=== PATIENT | female | born 1950 | race Hispanic/Latino ===

== ENCOUNTER → 2020-02-10 | Outpatient (CLI) | payer OTHER, MEDICARE | END | disposition home or self-care (01) | LOC: RAH 09:33 | PROVIDERS: ATTEND Family Medicine | DX: N28.1 Cyst of kidney, acquired (principal); I70.0 Atherosclerosis of aorta | CPT/HCPCS: 76700 ==

== ENCOUNTER → 2020-04-30 | Outpatient (CLI) | payer OTHER, MEDICARE | END | disposition home or self-care (01) | LOC: RAH 13:22 | PROVIDERS: ATTEND Family Medicine | DX: M79.89 Other specified soft tissue disorders (principal) | CPT/HCPCS: 73562 ==

== ENCOUNTER → 2021-02-07 | Outpatient (CLI) | payer OTHER, MEDICARE | END | disposition home or self-care (01) | LOC: OIH 08:39 | PROVIDERS: ATTEND Family Medicine | DX: M19.012 Primary osteoarthritis, left shoulder (principal); M85.822 Other specified disorders of bone density and structure, left upper arm | CPT/HCPCS: 73030 ==

== ENCOUNTER 2022-03-03 06:37 | Emergency (ER) | payer OTHER, MEDICARE ==
[~2022-03-03] VITALS: Ht 152.4 cm; Wt 60.8 kg
[2022-03-03 06:57] LABS: HEMATOCRIT 38.2 % (36-48); RED BLOOD CELL COUNT(AUTO) 4.33 MIL/uL (4.00-5.50); WHITE BLOOD COUNT (AUTO) 6.5 K/uL (4.8-10.8)
[2022-03-03 06:58] LABS: BASOPHILS % (AUTO) 0.5 % (0.0-5.0); EOSINOPHILS % (AUTO) 1.6 % (0.0-8.0); LYMPHOCYTES % (AUTO) 33.8 % (21.0-51.0); MEAN CORPUSCULAR HEMOGLOBIN 29.1 pg (27.0-33.0); MEAN CORPUSCULAR VOLUME 88.2 fL (79-99); MONOCYTES % (AUTO) 6.2 % (3.0-13.0); NEUTROPHILS % (AUTO) 57.7 % (40.0-77.0); PLATELET COUNT (AUTO) 393 K/uL (130-400); RED CELL DISTRIBUTION WIDTH 12.8 % (11.0-15.5)
[2022-03-03] MEDS ORDERED: NITROGLYCERIN 0.4 MG SL TAB SL PRN (07:00)
[2022-03-03] MEDS ORDERED: ASPIRIN 325MG TAB PO ONE (07:00)
[2022-03-03 07:12] LABS: ALBUMIN 4.3 g/dL (3.5-5.0); POTASSIUM 3.9 mmol/L (3.5-5.1); TOTAL PROTEIN, SERUM 8.8 g/dL (6.0-8.3)
[2022-03-03 07:25] LABS: CREATININE 0.9 mg/dL (0.5-1.5)
[2022-03-03 10:04] VITALS: BP 156/76
== END 2022-03-03 10:44 | disposition home or self-care (01) ==
LOC: EDH 06:37
DX: R07.89 Other chest pain (principal); E78.00 Pure hypercholesterolemia, unspecified; M19.90 Unspecified osteoarthritis, unspecified site; I11.9 Hypertensive heart disease without heart failure; Z88.5 Allergy status to narcotic agent; Z88.6 Allergy status to analgesic agent
CPT/HCPCS: 36415; 71045; 80053; 83880; 84484; 85025; 93005

== ENCOUNTER 2022-07-12 14:07 | Emergency (ER) | payer OTHER, MEDICARE ==
[~2022-07-12] VITALS: Ht 170.2 cm; Wt 57.6 kg
[2022-07-12 14:34] LABS: BASOPHILS % (AUTO) 0.6 % (0.0-5.0); EOSINOPHILS % (AUTO) 0.7 % (0.0-8.0); HEMATOCRIT 32.8 % (36-48); LYMPHOCYTES % (AUTO) 27.7 % (21.0-51.0); MEAN CORPUSCULAR HEMOGLOBIN 29.3 pg (27.0-33.0); MEAN CORPUSCULAR HGB CONC 33.5 g/dL (32.0-36.0); MEAN CORPUSCULAR VOLUME 87.5 fL (79-99); MONOCYTES % (AUTO) 8.3 % (3.0-13.0); NEUTROPHILS % (AUTO) 62.4 % (40.0-77.0); PLATELET COUNT (AUTO) 393 K/uL (130-400); RED BLOOD CELL COUNT(AUTO) 3.75 MIL/uL (4.00-5.50); RED CELL DISTRIBUTION WIDTH 13.7 % (11.0-15.5); WHITE BLOOD COUNT (AUTO) 6.9 K/uL (4.8-10.8)
[2022-07-12 14:51] LABS: ALBUMIN 3.7 g/dL (3.5-5.0); MAGNESIUM 1.9 mg/dL (1.80-2.40); POTASSIUM 3.9 mmol/L (3.5-5.1); TOTAL PROTEIN, SERUM 7.7 g/dL (6.0-8.3)
[2022-07-12] MEDS ORDERED: MECLIZINE HCL 12.5 MG TABLET PO ONE (15:30)
[2022-07-12] MEDS ORDERED: ACETAMINOPHEN 500 MG TABLET PO ONE (15:30)
[2022-07-12] MEDS ORDERED: ACETAMINOPHEN 500 MG TABLET ONE (15:59)
[2022-07-12] MEDS: MECLIZINE HCL 25 MG TABLET ONE ×2 (16:03→16:18)
[2022-07-12 16:50] LABS: APPEARANCE,URINE CLEAR (CLEAR); BILIRUBIN,URINE NEGATIVE (NEGATIVE); COLOR,URINE LIGHT-YELLOW (YELLOW); GLUCOSE, URINE (UA) NEGATIVE (NEGATIVE); KETONES,URINE NEGATIVE (NEGATIVE); LEUKOCYTE ESTERASE ,URINE 75 Leu/uL (NEGATIVE); NITRATE,URINE NEGATIVE (NEGATIVE); PH,URINE 6.5 (5.0-8.0); PROTEIN,URINE NEGATIVE (NEGATIVE); UROBILINOGEN,URINE 0.2 mg/dL (0.2-1.0)
[2022-07-12 17:19] LABS: BACTERIA,URINE RARE /HPF (None Seen); MUCUS,URINE RARE LPF (None Seen); SQUAMOUS EPITHELIAL CELL,UR FEW /HPF (0-2)
[2022-07-12] MEDS ORDERED: DICL100T85 PO (17:51)
[2022-07-12] MEDS ORDERED: MECL-226 PO (17:51)
[2022-07-12 18:36] VITALS: BP 153/69
== END 2022-07-12 18:38 | disposition home or self-care (01) ==
LOC: EDH 14:07
DX: R51.9 Headache, unspecified (principal); M54.2 Cervicalgia; R42 Dizziness and giddiness; I10 Essential (primary) hypertension; M19.90 Unspecified osteoarthritis, unspecified site; E78.00 Pure hypercholesterolemia, unspecified; Z90.710 Acquired absence of both cervix and uterus; Z98.890 Other specified postprocedural states; Z88.5 Allergy status to narcotic agent; Z88.6 Allergy status to analgesic agent; Z88.8 Allergy status to other drugs, medicaments and biological substances
CPT/HCPCS: 36415; 71045; 80053; 81001; 83735; 84484; 85025; 87088; 93005

== ENCOUNTER → 2022-12-03 | Outpatient (CLI) | payer OTHER, MEDICARE ==
[~2022-12-03] MED LIST: AMOX1TAB16 PO; BACL10TA PO; CLON0.1T PO; CYAN-35 PO; ERGO400C PO; FOLI1 PO; HYDR12.54 PO; LETR2.5T7 PO; MELO-108 PO; OMEP20CA12 PO; PANT40TA PO; SIMV-43 PO; TRAZ-185 PO; VALS160T29 PO; VITA-395 PO
== END | disposition home or self-care (01) ==
LOC: RAH 13:49
PROVIDERS: ATTEND Family Medicine
DX: I10 Essential (primary) hypertension (principal); R06.02 Shortness of breath
CPT/HCPCS: 93306

== ENCOUNTER 2023-03-18 22:24 | Emergency (ER) | payer OTHER, MEDICARE ==
[~2023-03-18] VITALS: Ht 152.4 cm; Wt 54.4 kg
[2023-03-18 22:28] VITALS: BP 156/74; PULSE 88; RESP 18
[2023-03-18] MEDS ORDERED: ACETAMINOPHEN 500 MG TABLET PO ONE (23:30)
[2023-03-18 23:35] LABS: APPEARANCE,URINE CLEAR (CLEAR); BILIRUBIN,URINE NEGATIVE (NEGATIVE); COLOR,URINE COLORLESS (YELLOW); GLUCOSE, URINE (UA) NEGATIVE (NEGATIVE); KETONES,URINE NEGATIVE (NEGATIVE); LEUKOCYTE ESTERASE ,URINE NEGATIVE Leu/uL (NEGATIVE); NITRATE,URINE 1+ (NEGATIVE); OCCULT BLOOD,URINE NEGATIVE (NEGATIVE); PH,URINE 7.5 (5.0-8.0); PROTEIN,URINE NEGATIVE (NEGATIVE); UROBILINOGEN,URINE 0.2 mg/dL (0.2-1.0)
[2023-03-18 23:36] LABS: ADD UA MICROSCOPIC YES
[2023-03-18 23:38] LABS: BACTERIA,URINE RARE /HPF (None Seen)
[2023-03-18] MEDS ORDERED: TRAM50TA4 PO (23:56)
== END 2023-03-19 00:15 | disposition home or self-care (01) ==
LOC: EDH 22:24
DX: S82.002A Unspecified fracture of left patella, initial encounter for closed fracture (principal); I10 Essential (primary) hypertension; Z79.899 Other long term (current) drug therapy; Z90.49 Acquired absence of other specified parts of digestive tract; W01.10XA Fall on same level from slipping, tripping and stumbling with subsequent striking against unspecified object, initial encounter; Y93.89 Activity, other specified; Y92.89 Other specified places as the place of occurrence of the external cause; Y99.8 Other external cause status
CPT/HCPCS: 29505; 73562; 73700; 81001; 87077; 87088; 87186

== ENCOUNTER → 2024-06-29 | Outpatient (CLI) | payer OTHER, MEDICARE ==
[~2024-06-29] MED LIST changes: +TRAM50TA4 PO
--- NOTE | 2024-06-29 12:41 | HMCIMG ---
ABD 1VW HISTORY: Constipation COMPARISON: None FINDINGS: A frontal projection of the abdomen was obtained. A nonspecific bowel gas pattern is seen. Fecal material is seen in the colon. Degenerative changes of the thoracolumbar spine are noted. IMPRESSION: 1. A nonspecific bowel gas pattern is seen.
== END | disposition home or self-care (01) ==
LOC: RAH 11:30
PROVIDERS: ATTEND Internal Medicine
DX: K59.00 Constipation, unspecified (principal); M47.815 Spondylosis without myelopathy or radiculopathy, thoracolumbar region
CPT/HCPCS: 74018

== ENCOUNTER 2024-11-20 00:40 | Emergency (ER) | payer OTHER, MEDICAID ==
[~2024-11-20] VITALS: Ht 152.4 cm; Wt 59.0 kg
--- NOTE | 2024-11-20 01:23 | ERN ---
ED Note History of Present Illness Stated Complaint: ELEVATED BP, HEADACHE, LIGHT HEADED ONSET 1100 Chief Complaint: Headache Time Seen by MD: 00:49 Dictation: This is a 74-year-old female who presented to the emergency room with complaints of occipital headache and lightheadedness and feels that her blood pressure is high. She stated that yesterday she felt dehydrated and drank an electrolyte powder packet mixed with water and her report is that her blood pressure maybe high be due to sodium load. No history of any fall, no visual disturbance, no neurological changes. No nausea vomitings no fever chills or rigors. Apparently she was noted to be hyperventilating in the triage area but settled down Temperature 98 pulse 90 respirations 26 blood pressure 147/76 with a pulse oximetry of 100% on room air Her chronic medical problems include hypertension, hyperlipidemia and history of breast cancer Allergies: Coded Allergies: aspirin (Unverified Allergy, Unknown, 03/03/22) caffeine (Unverified Allergy, Unknown, 07/12/22) codeine (Unverified Allergy, Unknown, 03/03/22) Home Meds Active Scripts Tramadol Hcl (Tramadol HCl) 50 Mg Tablet, 50 MG PO QIDP PRN for PAIN, #14 TAB Prov:URIEL URIAS MD 03/18/23 Amoxicillin/Potassium Clav (Amox Tr-K Clv 875-125 mg Tab) 1 Each Tablet, 1 EACH PO BID, #8 TAB Prov:[facility] 10/31/22 Pantoprazole Sodium (Protonix) 40 Mg Tablet.dr, 40 MG PO BIDAC, #30 TAB Prov:[facility] 10/31/22 Reported Medications Cholecalciferol (Vitamin D3) (Vitamin D3) 10 Mcg Capsule, 10 MCG PO DAILY, CAP 10/26/22 Cyanocobalamin (Vitamin B-12) (Vitamin B-12) 1,000 Mcg Capsule, 1000 MCG PO DAILY, CAP 10/26/22 Vitamin E (Dl,Tocopheryl Acet) (Vitamin E) 180 Mg Capsule, 180 MG PO DAILY, CAP 10/26/22 Meloxicam (Meloxicam) 15 Mg Tablet, 15 MG PO PCLUNCH, TAB 10/26/22 Valsartan (Valsartan) 160 Mg Tablet, 160 MG PO DAILY, TAB 10/26/22 Simvastatin (Simvastatin) 20 Mg Tablet, 20 MG PO HS, TAB 10/26/22 Hydrochlorothiazide (Hydrochlorothiazide) 12.5 Mg Tablet, 12.5 MG PO DAILY, TAB 10/26/22 Folic Acid (Folvite) 1 Mg Tab, 1 MG PO DAILY, TAB 10/26/22 Clonidine HCl (Clonidine HCl) 0.1 Mg Tablet, 0.1 MG PO DAILY PRN for IF SBP GREATER THAN 170, TAB 10/26/22 Baclofen (Baclofen) 10 Mg Tablet, 10 MG PO HS, TAB 10/26/22 Letrozole (Letrozole) 2.5 Mg Tablet, 2.5 MG PO DAILY, TAB 10/26/22 Omeprazole (Omeprazole) 20 Mg Capsule.dr, 20 MG PO DAILY, CAP 10/26/22 Trazodone HCl (Trazodone HCl) 50 Mg Tablet, 50 MG PO BID, TAB 10/26/22 Past Medical History Past Medical History: Anxiety, High Cholesterol, Hypertension Surgical History: Hysterectomy, Surgical History Other: L BREAST BIOPSY/LUMPECTOMY Family History: HTN Social History: Negative, Lives with family History: Not Applicable RN Note Reviewed/Agreed w/PFSH: Yes Review of System Dictation Constitutional: Negative for fever,chills, and weight loss Eyes: Negative for injury, pain,redness, and discharge ENT: Negative for injury,pain or swelling Cardiovascular: Negative for chest pain, palpitations, and edema Respiratory: Negative for shortness of breath, cough, and wheezing, Abdomen/GI: Negative for abdominal pain, nausea, vomiting, diarrhea, and constipation Back: Negative for injury and pain : Negative for injury, bleeding and discharge MS/Extremity: Negative for injury and deformity Skin: Negative for rash, and discoloration Neuro: Negative for headache, weakness, numbness, tingling, and seizure Psych: Negative for suicide ideation, homicidal ideation, and hallucinations positive for severe anxiety Initial Vital Sign VS Vital Signs Date Time Temp Pulse Resp B/P (MAP) Pulse Ox O2 Delivery O2 Flow Rate FiO2 11/20/24 00:44 98.1 90 26 147/76 100 Room Air 0 11/20/24 01:04 21 Physical Exam Dictation General: awake, alert, NAD generally anxious but very pleasant lady Head/Face: Normocephalic, atraumatic Eyes: PERRL, EOMI, vision at baseline ENT: oral cavity clear, TMs clear, no signs of infection mucous membranes were dry Neck: Trachea midline, supple, no nuchal rigidity Cardiovascular: RRR, normal S1/S2, No MRGs, no JVD Respiratory: CTAB, no respiratory distress, No rales or wheezes Abdomen: Soft, non-tender, non-distended, normal bowel sounds, no guarding or rebound. Skin: Warm, dry, normal turgor, no rash MS/Extremity: Pulses equal, no cyanosis, neurovascular intact, FROM Neuro: COAx4, GCS 15, strength 5/5, CN 2-12 intact, normal cerebellar exam, normal gait, Psych: Normal behavior, mood, and affect normal Extremities-trace edema without any palpable cords, Homans sign is negative Results (Laboratory/Radiology) Laboratory/Radiology Laboratory Tests Test 11/20/24 01:19 11/20/24 01:38 11/20/24 06:34 Urine Color COLORLESS (YELLOW) Urine Appearance CLEAR (CLEAR) Urine pH 7.5 (5.0-8.0) Urine Specific [place] 1.002 (1.001-1.031) Urine Protein NEGATIVE mg/dL (NEGATIVE) Urine Glucose (UA) NEGATIVE mg/dL (NEGATIVE) Urine Ketones NEGATIVE mg/dL (NEGATIVE) Urine Occult Blood NEGATIVE (NEGATIVE) Urine Nitrate NEGATIVE (NEGATIVE) Urine Bilirubin NEGATIVE mg/dL (NEGATIVE) Urine Urobilinogen 0.2 mg/dL (0.2-1.0) Urine Leukocyte Esterase NEGATIVE Justino/uL White Blood Count 9.8 K/uL (4.8-10.8) Red Blood Count 4.29 MIL/uL (4.00-5.50) Hemoglobin 13.7 g/dL (12.0-16.0) Hematocrit 37.4 % (36-48) Mean Corpuscular Volume 87.2 fL (79-99) Mean Corpuscular Hemoglobin 31.9 pg (27.0-33.0) Mean Corpuscular Hemoglobin Concent 36.6 g/dL (32.0-36.0) H Red Cell Distribution Width 12.6 % (11.0-15.5) Platelet Count 359 K/uL (130-400) Mean Platelet Volume 8.9 fL (7.5-10.5) Immature Granulocyte % (Auto) 0.4 % (0-1) Neutrophils (%) (Auto) 64.9 % (40.0-77.0) Lymphocytes (%) (Auto) 28.0 % (21.0-51.0) Monocytes (%) (Auto) 6.5 % (3.0-13.0) Eosinophils (%) (Auto) 0.1 % (0.0-8.0) Basophils (%) (Auto) 0.1 % (0.0-5.0) Neutrophils # (Auto) 6.3 K/uL (1.8-7.7) Lymphocytes # (Auto) 2.7 K/uL (1.0-4.8) Monocytes # (Auto) 0.6 K/uL (0.1-1.0) Eosinophils # (Auto) 0.01 K/uL (0.00-0.70) Basophils # (Auto) 0.01 K/uL (0.00-0.20) Absolute Immature Granulocyte (auto 0.04 K/uL (0-1) Nucleated Red Blood Cells 0.0 % (0.0-0.19) Red Blood Cell Morphology See comments Sodium Level 126 mmol/L (136-145) L 128 mmol/L (136-145) L Potassium Level 2.8 mmol/L (3.5-5.1) *L 3.6 mmol/L (3.5-5.1) Chloride Level 86 mmol/L (101-111) *L 91 mmol/L (101-111) L Carbon Dioxide Level 28 mmol/L (21-32) 32 mmol/L (21-32) Blood Urea Nitrogen 10 mg/dL (7-18) 8 mg/dL (7-18) Creatinine 0.7 mg/dL (0.5-1.0) 0.7 mg/dL (0.5-1.0) Glomerular Filtration Rate Calc 91 mL/min (>90) 91 mL/min (>90) Random Glucose 108 mg/dL (70-105) H 92 mg/dL (70-105) Total Calcium 9.3 mg/dL (8.5-10.1) 8.0 mg/dL (8.5-10.1) L Magnesium Level 1.50 mg/dL (1.80-2.40) L 1.60 mg/dL (1.80-2.40) L Total Creatine Kinase 73 U/L (21-232) Troponin I High Sensitivity 11.9 ng/L (4-50) Labs Reviewed?: Yes ED Course ED Course Orders Procedure Category Date Status Time Ketorolac PHA 11/20/24 Complete Tromethamine 30mg/Ml 01:30 Cbc With Differential LAB 11/20/24 Complete 01:21 Basic Metabolic Panel LAB 11/20/24 Complete 01:21 Cardiac Panel LAB 11/20/24 Complete 01:21 Magnesium LAB 11/20/24 Complete 01:21 Urinalysis Profile LAB 11/20/24 Complete 01:21 12 Lead Ekg Tracing- EKG 11/20/24 Resulted Technical 01:21 Acetaminophen 325 Tab PHA 11/20/24 Complete (Tylenol 325mg Tab 02:00 Alprazolam 0.5mg PHA 11/20/24 Complete (Xanax 0.5mg) 02:00 0.9% Nacl 500ml PHA 11/20/24 Complete Iv.Soln (Ns 500ml 02:30 Potassium Bicarb/Cit PHA 11/20/24 Complete Ac 25meq (K-Lyte Ta 02:30 Potassium Bicarb/Cit PHA 11/20/24 Complete Ac 25meq (K-Lyte Ta 02:16 Alprazolam 0.5mg PHA 11/20/24 Complete (Xanax 0.5mg) 03:00 Basic Metabolic Panel LAB 11/20/24 Complete 04:32 Magnesium 2gm Premix PHA 11/20/24 Complete 50ml (Magnesium 2gm 06:00 Magnesium LAB 11/20/24 Complete 04:32 Current Medications Medications (Trade) Dose Ordered Sig/Martha Route PRN Reason Start Time Stop Time Status Last Admin Dose Admin Acetaminophen (TYLenol 325MG TAB) 650 mg ONCE ONCE PO 11/20/24 02:00 11/20/24 02:01 DC 11/20/24 01:47 Alprazolam (XANax 0.5MG) 0.5 mg ONCE ONCE PO 11/20/24 02:00 11/20/24 02:01 DC 11/20/24 01:46 Alprazolam (XANax 0.5MG) 0.5 mg ONCE ONCE PO 11/20/24 03:00 11/20/24 03:01 DC 11/20/24 03:04 Ketorolac Tromethamine (toRADol) 30 mg ONCE ONCE IVP 11/20/24 01:30 11/20/24 01:25 DC Magnesium Sulfate 50 ml @ 0 mls/hr PROTOCOL IV 11/20/24 06:00 11/20/24 07:44 DC Potassium Bicarbonate (K-Lyte Tablet Eff 25 Meq Tablet.eff) 25 meq STK-MED ONCE .ROUTE 11/20/24 02:16 11/20/24 02:20 DC Potassium Bicarbonate (K-Lyte Tablet Eff 25 Meq Tablet.eff) 50 meq ONCE ONCE PO 11/20/24 02:30 11/20/24 02:31 DC 11/20/24 02:19 Sodium Chloride 500 ml @ 0 mls/hr Q0M IV 11/20/24 02:30 11/20/24 07:44 DC 11/20/24 02:18 Vital Signs Date Time Temp Pulse Resp B/P (MAP) Pulse Ox O2 Delivery O2 Flow Rate FiO2 11/20/24 07:43 97.9 65 15 126/63 100 Room Air* 0 11/20/24 06:27 62 15 120/61 97 Room Air* 0 11/20/24 04:42 97.5 67 14 139/74 99 Room Air* 0 11/20/24 02:57 97.5 78 22 131/70 99 Room Air* 0 11/20/24 01:04 97.5 91 22 163/75 99 Room Air* 0 11/20/24 00:44 98.1 90 26 147/76 100 Room Air 0 We will perform diagnostic labs, advanced imaging and administer medications according to the patient's complaint. Once the results are available, will review and personally interpreted the labs to rule out any acute life- threatening emergency the trach require immediate intervention and treatment. I will then re-evaluate the patient after treatment and diagnostic exams have return to determine whether the patient requires any further testing, can safely be discharged home or need further admission to hospital for additional treatment and evaluation. Reviewed labs which showed severe hypokalemia, severe hyponatremia and hypochloremia.-fluid boluses as well as aggressive repletion of potassium and magnesium done. Repeat BNP 7 was requested her dizziness and headache have significantly improved and resolved 7:23 a.m. electrolytes improved significantly from prior we will discharge her to home to follow up with her primary care physician Medical Decision Making MDM Differential diagnosis: Neuropathies sensory or motor, electrolyte abnormalities, anxiety/panic attack, collagen vascular disease Rationale: Tests considered and ordered secondary to shared decision making include: Previous outside records reviewed: Old ER visits. Risk of complication and/or morbidity or mortality of patient management: None Medications-Per medication reconciliation Need for hospitalization: Patient does not meet criteria for hospitalization. Need for emergency major/minor surgery: No There are no social concerns with this patient. Prescription drug management Prescriptions will include symptomatic care Patient's prior external medical records from other ER visits were reviewed by me as indicated. Prior testing and results from previous visits were reviewed. Prior tests were taken into account with medical decision making and resource utilization, independent historian/historians were used to obtain complete medical history. I independently interpreted the test that were performed, results were reviewed by me and considered findings on radiology if ordered. Medical management and examination interpretation discussions were had by me with other qualified healthcare professionals as indicated for the patient's care. Problem List Problem List: (1) Hypokalemia (2) Hyponatremia (3) Severe dehydration (4) High blood pressure (5) Dizziness (6) Headache (7) Hypomagnesemia DX & DISP Disposition: Discharge Departure Impression: Primary Impression: Hypokalemia Additional Impressions: Hyponatremia, Severe dehydration, High blood pressure, Hypomagnesemia, Headache, Dizziness Condition: Stable Additional Instructions: Patient and the caregiver have been informed of all the diagnostic tests and the imaging conducted during the today's visit to the emergency room and has verbalized understanding of the results I have personally reviewed and interpreted all diagnostic exams performed here in the ER today as well as the vital signs documented by the nursing staff. The patient is now being discharged to home and should follow up with the primary care physician or the specialist as directed by the ER staff. Follow-up with primary care provider in 1 to 2 days. Take medications as directed here in the emergency room. Okay to continue home medications unless otherwise discussed during your visit in the emergency room today. Return to your nearest emergency room if symptoms worsen or if there is no improvement. Call 911 if you need immediate assistance. Take Tylenol or Motrin over-the- counter as needed and if no contraindications are present. Increase oral hydration. A wound culture or urine culture was ordered here in the emergency room department please follow-up with primary care provider and advise them to get repeat ports from our facility. If you had any Jason wrap/splints that were applied here, please do not remove them until you see your primary care or specialty. Referrals: EBONY FARFAN MD (PCP) JUDITH EPPERSON MD Nov 20, 2024 01:23
[2024-11-20 01:29] LABS: APPEARANCE,URINE CLEAR (CLEAR); GLUCOSE, URINE (UA) NEGATIVE (NEGATIVE); LEUKOCYTE ESTERASE ,URINE NEGATIVE Leu/uL (NEGATIVE); NITRATE,URINE NEGATIVE (NEGATIVE); OCCULT BLOOD,URINE NEGATIVE (NEGATIVE)
[2024-11-20 01:32] LABS: ADD UA MICROSCOPIC NO
--- NOTE | 2024-11-20 01:33 | EKG ---
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
[2024-11-20 01:52] LABS: IMMATURE GRANULOCYTE ABSOLUTE 0.04 K/uL (0-1); NUCLEATED RED BLOOD CELLS 0.0 % (0.0-0.19); PLATELET COUNT (AUTO) 359 K/uL (130-400); RED BLOOD CELL COUNT(AUTO) 4.29 MIL/uL (4.00-5.50); RED CELL DISTRIBUTION WIDTH 12.6 % (11.0-15.5); WHITE BLOOD COUNT (AUTO) 9.8 K/uL (4.8-10.8)
[2024-11-20 02:01] LABS: CREATININE 0.7 mg/dL (0.5-1.0); GLOMERULAR FILTR. RATE CALC 91.0 mL/min (>90); GLUCOSE,RANDOM 108.0 mg/dL (70-105); SODIUM SERUM 126.0 mmol/L (136-145); UREA NITROGEN, BLOOD 10.0 mg/dL (7-18)
[2024-11-20 02:10] LABS: CREATINE KINASE, TOTAL 73.0 U/L (21-232)
[2024-11-20] MEDS: 0.9% NACL 500ML IV.SOLN 500 ML IV SCH (02:18)
[2024-11-20] MEDS ORDERED: MAGNESIUM 2GM PREMIX 50ML 50 ML IV SCH (06:00)
[2024-11-20 06:53] LABS: CREATININE 0.7 mg/dL (0.5-1.0); GLOMERULAR FILTR. RATE CALC 91.0 mL/min (>90); GLUCOSE,RANDOM 92.0 mg/dL (70-105); SODIUM SERUM 128.0 mmol/L (136-145); UREA NITROGEN, BLOOD 8.0 mg/dL (7-18)
[2024-11-20 07:43] VITALS: BP 126/63; PULSE 65; RESP 15; TEMP 97.9; O2SAT 100
== END 2024-11-20 07:44 | disposition home or self-care (01) ==
LOC: EDH 00:40
DX: E87.6 Hypokalemia (principal); E87.1 Hypo-osmolality and hyponatremia; E86.0 Dehydration; R03.0 Elevated blood-pressure reading, without diagnosis of hypertension; E83.42 Hypomagnesemia; R51.9 Headache, unspecified; R42 Dizziness and giddiness; E78.00 Pure hypercholesterolemia, unspecified; F41.9 Anxiety disorder, unspecified; I10 Essential (primary) hypertension; Z79.811 Long term (current) use of aromatase inhibitors; Z79.899 Other long term (current) drug therapy; Z88.5 Allergy status to narcotic agent; Z88.6 Allergy status to analgesic agent; Z90.710 Acquired absence of both cervix and uterus
CPT/HCPCS: 36415; 80048; 81003; 82550; 83735; 84484; 85025; 93005; 99285